=== PATIENT | male | born 1960 | race Caucasian/White ===

== ENCOUNTER 2019-12-25 15:27 | Emergency (ER) | payer BC ==
--- NOTE | 2019-12-25 17:03 | EDM.PDOC ---
ED HPI GENERAL MEDICAL PROBLEM - General Chief Complaint: Genitourinary Problem Stated Complaint: LOW BACK PAIN, Time Seen by Provider: 12/25/19 16:17 Source of Information: Reports: Patient, RN Notes Reviewed - History of Present Illness INITIAL COMMENTS - FREE TEXT/NARRATIVE: 59 yr old male comes in with sx of not voiding much at a time. He had a renal biopsy at [facility] about 10 days ago. He has only 1 kidney, had been on peritoneal dialysis with renal failure and now on hemodialysis. He is making a small amt of urine per day. He has had hematuria since the renal biopsy but that has been improving. He did void about "1/2 cup urine on arrival to ED. He is concerned that he may have a clot obstructing bladder out flow. His urine has been more clear the past 2 days and has not been passing clots today as he has several days prior. He was discharged from [facility] about 3 days ago. Left Lower Back Pain Score (Numeric/FACES): 6 - Related Data Allergies Allergy/AdvReac Type Severity Reaction Status Date / Time No Known Allergies Allergy Verified 12/25/19 16:03 Past Medical History HEENT History: Reports: Impaired Vision Cardiovascular History: Reports: High Cholesterol Respiratory History: Reports: Sleep Apnea Gastrointestinal History: Reports: Chronic Constipation Genitourinary History: Reports: Dialysis, Other (See Below) Other Genitourinary History: born with one kidney Oncologic (Cancer) History: Reports: Other (See Below) Other Oncologic History: just had kidney biopsy of tumor, unsure what results are - Past Surgical History GI Surgical History: Reports: Appendectomy, Cholecystectomy Social & Family History - Tobacco Use Smoking Status *Q: Never Smoker - Caffeine Use Caffeine Use: Reports: None ED ROS GENERAL - Review of Systems Review Of Systems: See Below Constitutional: Denies: Fever, Chills, Diaphoresis HEENT: Reports: No Symptoms Respiratory: Denies: Shortness of Breath Cardiovascular: Denies: Chest Pain GI/Abdominal: Denies: Abdominal Pain : Reports: Other (voiding small amts only at a time) Skin: Reports: No Symptoms Neurological: Reports: No Symptoms ED EXAM, RENAL/ - Physical Exam Exam: See Below General Appearance: Alert, No Apparent Distress Throat/Mouth: Normal Inspection, Normal Oropharynx Head: Atraumatic Neck: Supple Respiratory/Chest: No Respiratory Distress, Lungs Clear, Normal Breath Sounds Cardiovascular: Regular Rate, Rhythm GI/Abdominal: Non-Tender. No: Distended Back Exam: No: CVA Tenderness (L), CVA Tenderness (R) Neurological: Alert, Oriented, No Motor/Sensory Deficits Skin Exam: Warm, Dry, Normal Color Course - Vital Signs Last Recorded V/S: Last Vital Signs Temp 97.2 F 12/25/19 15:54 Pulse 98 12/25/19 15:54 Resp 20 12/25/19 15:54 BP 132/78 12/25/19 15:54 Pulse Ox 97 12/25/19 15:54 - Re-Assessments/Exams Free Text/Narrative Re-Assessment/Exam: 12/26/19 07:46 We did do a bladder scan, showed about 230 ml of urine only shortly after voiding. He states that when he did void here in the ED the urine was relatively clear with no clots or gross hematuria. I did discuss this with Dr Jim, his It Systems Administrator who does agree that he does not need or should not get a catheter at this time. Pt is comfortable with that plan. Discharge instr. as documented. Departure - Departure Time of Disposition: 16:58 Disposition: Home, Self-Care 01 Preliminary Cause of *Q: Sepsis & Multi System Organ Failure Clinical Impression: Hematuria - Discharge Information Instructions: Hematuria, Adult Referrals: Jolene Carroll, [employer]GER [Primary Care Provider] - Forms: ED Department Discharge Additional Instructions: Continue current medications, dialysis tomorrow as planned. Return to ED as needed if symptoms worsening in any way. Call Dr Jin as needed. Sepsis Event Note - Evaluation Sepsis Screening Result: No Definite Risk - Focused Exam Date Exam was Performed: 12/26/19 Time Exam was Performed: 12:05
== END 2019-12-25 17:25 | disposition home or self-care (01) ==
LOC: JD.ED 15:27
DX: R31.9 Hematuria, unspecified (principal); Z90.49 Acquired absence of other specified parts of digestive tract
CPT/HCPCS: 51798; 99282; 99283

== ENCOUNTER 2019-12-26 17:15 | Emergency (ER) | payer BC ==
--- NOTE | 2019-12-26 17:33 | EDM.PDOC ---
<Jose Patel - Last Filed: 12/27/19 03:06> ED HPI GENERAL MEDICAL PROBLEM - General Chief Complaint: General Stated Complaint: SENT FOR BLOOD TRANSFUSION Time Seen by Provider: 12/26/19 17:24 - Related Data Allergies Allergy/AdvReac Type Severity Reaction Status Date / Time No Known Allergies Allergy Verified 12/26/19 17:30 Home Meds: Home Meds Acetaminophen 1,000 mg PO Q6HR 12/26/19 [History] Albuterol [Proventil HFA] 2 puff INH QID PRN 12/26/19 [History] Bisacodyl [Laxative Suppository] 10 mg RC DAILY PRN 12/26/19 [History] Folic Acid/Vit B Complex and C [Dialyvite] 1 each PO DAILY 12/26/19 [History] Gentamicin [Gentamicin 0.1%] 15 gm TOP DAILY PRN 12/26/19 [History] HYDROmorphone [Dilaudid] 4 mg PO Q3HR PRN 12/26/19 [History] Lactulose [Chronulac] 30 ml PO TID 12/26/19 [History] Lidocaine 5% [Lidoderm 5%] 1 patch TOP DAILY 12/26/19 [History] Melatonin 3 mg PO BEDTIME 12/26/19 [History] Omeprazole 20 mg PO DAILY 12/26/19 [History] QUEtiapine [SEROquel] 200 mg PO BEDTIME 12/26/19 [History] Sennosides/Docusate Sodium [Sennosides-Docusate Sodium] 2 each PO BID 12/26/19 [ History] Sevelamer Carbonate [Renvela] 3 tab PO TID 12/26/19 [History] Venlafaxine HCl [Venlafaxine ER] 37.5 mg PO DAILY 12/26/19 [History] Warfarin Sliding Scale [Coumadin Sliding Scale] 1 each PO ASDIRECTED 12/26/19 [ History] atorvaSTATin [Lipitor] 20 mg PO DAILY 12/26/19 [History] polyethylene glycoL 3350 [MiraLAX] 17 gm PO DAILY 12/26/19 [History] Course - Vital Signs Last Recorded V/S: Last Vital Signs Temp 99.1 F 12/27/19 00:00 Pulse 87 12/27/19 00:01 Resp 16 12/27/19 00:01 BP 110/60 12/27/19 00:01 Pulse Ox 95 12/26/19 17:24 - Orders/Labs/Meds Labs: Laboratory Tests 12/26/19 12/26/19 12/26/19 Range/Units 17:35 17:35 17:35 WBC 15.76 H (4.23-9.07) K/mm3 RBC 2.59 L (4.63-6.08) M/mm3 Hgb 7.2 L* (13.7-17.5) gm/dl Hct 24.2 L (40.1-51.0) % MCV 93.4 H (79.0-92.2) fl MCH 27.8 (25.7-32.2) pg MCHC 29.8 L (32.2-35.5) g/dl RDW Std Deviation 51.2 H (35.1-43.9) fL Plt Count 356 H (163-337) K/mm3 MPV 9.3 L (9.4-12.3) fl Neut % (Auto) 81.2 H (34.0-67.9) % Lymph % (Auto) 8.0 L (21.8-53.1) % Todd % (Auto) 8.4 (5.3-12.2) % Eos % (Auto) 1.1 (0.8-7.0) Baso % (Auto) 0.3 (0.1-1.2) % Neut # (Auto) 12.81 H (1.78-5.38) K/mm3 Lymph # (Auto) 1.26 L (1.32-3.57) K/mm3 Todd # (Auto) 1.32 H (0.30-0.82) K/mm3 Eos # (Auto) 0.17 (0.04-0.54) K/mm3 Baso # (Auto) 0.04 (0.01-0.08) K/mm3 Manual Slide Review Abnormal smear Sodium 140 (136-145) mEq/L Potassium 3.9 (3.5-5.1) mEq/L Chloride 102 (98-107) mEq/L Carbon Dioxide 31 (21-32) mEq/L Anion Gap 10.9 (5-15) BUN 14 (7-18) mg/dL Creatinine 4.4 H (0.7-1.3) mg/dL Est Cr Clr Drug Dosing 19.73 mL/min Estimated GFR (MDRD) 14 (>60) mL/min BUN/Creatinine Ratio 3.2 L (14-18) Glucose 110 H (74-106) mg/dL Calcium 8.4 L (8.5-10.1) mg/dL Total Bilirubin 1.9 H (0.2-1.0) mg/dL AST 57 H (15-37) U/L ALT 29 (16-63) U/L Alkaline Phosphatase 269 H (46-116) U/L Total Protein 6.9 (6.4-8.2) g/dl Albumin 1.8 L (3.4-5.0) g/dl Globulin 5.1 gm/dL Albumin/Globulin Ratio 0.4 L (1-2) Blood Type B POSITIVE Gel Antibody Screen Negative Crossmatch See Detail Meds: Medications Discontinued Medications Generic Name Dose Route Start Last Admin Trade Name Freq PRN Reason Stop Dose Admin Sodium Chloride 500 mls @ 10 mls/hr 12/26/19 18:45 12/26/19 18:50 Normal Saline IV 12/28/19 20:44 10 mls/hr .BOLUS ONE Administration Sodium Chloride Confirm 12/26/19 18:46 12/26/19 18:51 Normal Saline Administered 12/26/19 18:47 Not Given Dose 500 mls @ as directed .ROUTE .STK-MED ONE - Re-Assessments/Exams Free Text/Narrative Re-Assessment/Exam: 12/27/19 03:06 Notified that 2 units of PRBCs has finished infusing. The patient will be discharged home. Departure - Departure Time of Disposition: 03:07 Disposition: Home, Self-Care 01 Condition: Good Clinical Impression: Anemia requiring transfusions - Discharge Information *PRESCRIPTION DRUG MONITORING PROGRAM REVIEWED*: Not Applicable *COPY OF PRESCRIPTION DRUG MONITORING REPORT IN PATIENT DERRICK: Not Applicable Instructions: Anemia, Blood Transfusion, Adult, Care After, [id number] Referrals: Daquan Cordero MD [Primary Care Provider] - Martin Ventura MD [Ordering Only Provider] - Forms: ED Department Discharge Additional Instructions: You were seen in the emergency room for severe anemia, requiring transfusion of 2 units of packed red blood cells. Resume your dialysis at your usual scheduled time. Follow-up with your Digital Composer, Dr. Martin Ventura, at your next scheduled appointment. If any other problems, please do not hesitate to return to the ER. Sepsis Event Note - Focused Exam Date Exam was Performed: 12/27/19 Time Exam was Performed: 03:06 <Brittany Jacobs - Last Filed: 12/30/19 20:10> ED HPI GENERAL MEDICAL PROBLEM - General Source of Information: Reports: Patient History Limitations: Reports: No Limitations - History of Present Illness INITIAL COMMENTS - FREE TEXT/NARRATIVE: Patient is a 59-year-old male sent to the emergency department by his petroleum refinery laborer, Dr. Ventura, for a blood transfusion. Patient has only 1 kidney and is on hemodialysis for kidney failure. He was also recently diagnosed with a tumor on his kidney and had a biopsy done at [facility]. He was discharged from that facility about 10 days ago. He had his routine lab work done at dialysis today and his hemoglobin was found to be 6.6. Blood work done 2 days prior showed a hemoglobin of 7.2. He has not been having any increased fatigue or dizziness associated with this. He denies any hematemesis or hematochezia, however states he does have blood in his urine which his petroleum refinery laborer is aware of. He has never had to have a blood transfusion in the past. He denies any history of heart failure. Past Medical History HEENT History: Reports: Impaired Vision Cardiovascular History: Reports: High Cholesterol Respiratory History: Reports: Sleep Apnea Gastrointestinal History: Reports: Chronic Constipation Genitourinary History: Reports: Dialysis, Other (See Below) Other Genitourinary History: born with one kidney Oncologic (Cancer) History: Reports: Other (See Below) Other Oncologic History: just had kidney biopsy of tumor, unsure what results are - Past Surgical History GI Surgical History: Reports: Appendectomy, Cholecystectomy Social & Family History - Caffeine Use Caffeine Use: Reports: None ED ROS GENERAL - Review of Systems Review Of Systems: Comprehensive ROS is negative, except as noted in HPI. ED EXAM, GENERAL - Physical Exam Exam: See Below Exam Limited By: No Limitations General Appearance: Alert, WD/WN, No Apparent Distress Respiratory/Chest: No Respiratory Distress, Lungs Clear, Normal Breath Sounds, No Accessory Muscle Use, Chest Non-Tender Cardiovascular: Normal Peripheral Pulses, Regular Rate, Rhythm, No Edema, No Gallop, No JVD, No Murmur, No Rub Neurological: Alert, Oriented, CN II-XII Intact, Normal Cognition, Normal Gait, Normal Reflexes, No Motor/Sensory Deficits Psychiatric: Normal Affect, Normal Mood Skin Exam: Warm, Dry, Intact, Normal Color, No Rash Course - Orders/Labs/Meds Labs: Laboratory Tests 12/26/19 12/26/19 12/26/19 Range/Units 17:35 17:35 17:35 WBC 15.76 H (4.23-9.07) K/mm3 RBC 2.59 L (4.63-6.08) M/mm3 Hgb 7.2 L* (13.7-17.5) gm/dl Hct 24.2 L (40.1-51.0) % MCV 93.4 H (79.0-92.2) fl MCH 27.8 (25.7-32.2) pg MCHC 29.8 L (32.2-35.5) g/dl RDW Std Deviation 51.2 H (35.1-43.9) fL Plt Count 356 H (163-337) K/mm3 MPV 9.3 L (9.4-12.3) fl Neut % (Auto) 81.2 H (34.0-67.9) % Lymph % (Auto) 8.0 L (21.8-53.1) % Todd % (Auto) 8.4 (5.3-12.2) % Eos % (Auto) 1.1 (0.8-7.0) Baso % (Auto) 0.3 (0.1-1.2) % Neut # (Auto) 12.81 H (1.78-5.38) K/mm3 Lymph # (Auto) 1.26 L (1.32-3.57) K/mm3 Todd # (Auto) 1.32 H (0.30-0.82) K/mm3 Eos # (Auto) 0.17 (0.04-0.54) K/mm3 Baso # (Auto) 0.04 (0.01-0.08) K/mm3 Manual Slide Review Abnormal smear Sodium 140 (136-145) mEq/L Potassium 3.9 (3.5-5.1) mEq/L Chloride 102 (98-107) mEq/L Carbon Dioxide 31 (21-32) mEq/L Anion Gap 10.9 (5-15) BUN 14 (7-18) mg/dL Creatinine 4.4 H (0.7-1.3) mg/dL Est Cr Clr Drug Dosing 19.73 mL/min Estimated GFR (MDRD) 14 (>60) mL/min BUN/Creatinine Ratio 3.2 L (14-18) Glucose 110 H (74-106) mg/dL Calcium 8.4 L (8.5-10.1) mg/dL Total Bilirubin 1.9 H (0.2-1.0) mg/dL AST 57 H (15-37) U/L ALT 29 (16-63) U/L Alkaline Phosphatase 269 H (46-116) U/L Total Protein 6.9 (6.4-8.2) g/dl Albumin 1.8 L (3.4-5.0) g/dl Globulin 5.1 gm/dL Albumin/Globulin Ratio 0.4 L (1-2) Blood Type B POSITIVE Gel Antibody Screen Negative Crossmatch See Detail Meds: Medications Discontinued Medications Generic Name Dose Route Start Last Admin Trade Name Fani PRN Reason Stop Dose Admin Sodium Chloride 500 mls @ 10 mls/hr 12/26/19 18:45 12/26/19 18:50 Normal Saline IV 12/28/19 20:44 10 mls/hr .BOLUS ONE Administration Sodium Chloride Confirm 12/26/19 18:46 12/26/19 18:51 Normal Saline Administered 12/26/19 18:47 Not Given Dose 500 mls @ as directed .ROUTE .STK-MED ONE - Re-Assessments/Exams Free Text/Narrative Re-Assessment/Exam: Hemoglobin was significant for WBC of 15.76, hemoglobin low at 7.2, creatinine elevated at 4.4, glucose 110, calcium 8.4, total bili 1.9, AST 57, alk phos 269. We will transfuse 2 units of packed RBCs. Appropriate consent has been obtained. 12/26/19 22:34 Pt is tolerating transfusions well. He is still receiving his first unit of PRBCs. Pt will likely be in the ER until tumblers supervisor. Dr. Patel will assume care of the patient at this time. Sepsis Event Note - Evaluation Sepsis Screening Result: No Definite Risk - Focused Exam Date Exam was Performed: 12/30/19 Time Exam was Performed: 20:10
[2019-12-26] MEDS: Sodium Chloride 0.9% 500 ML IV ONE ×2 (18:49→18:50)
[2019-12-26] MEDS: Sodium Chloride 0.9% 500 ML ONE ×2 (18:49→18:51)
== END 2019-12-27 03:35 | disposition home or self-care (01) ==
LOC: JD.ED 17:15
DX: D64.9 Anemia, unspecified (principal); E78.00 Pure hypercholesterolemia, unspecified; Z99.2 Dependence on renal dialysis; Z79.01 Long term (current) use of anticoagulants
CPT/HCPCS: 36415; 36430; 80053; 85025; 86850; 86900; 86901; 86922; 96360; 96361; 99284; J7030; P9016; 99283; J7040

== ENCOUNTER 2019-12-31 14:20 | Emergency (ER) | payer BC ==
--- NOTE | 2019-12-31 14:49 | EDM.PDOC ---
ED HPI GENERAL MEDICAL PROBLEM - General Chief Complaint: Genitourinary Problem Stated Complaint: FLANK PAIN/BLOOD IN URINE Time Seen by Provider: 12/31/19 14:41 Source of Information: Reports: Patient History Limitations: Reports: No Limitations - History of Present Illness INITIAL COMMENTS - FREE TEXT/NARRATIVE: TRIAGE NOTE - pt came home from [facility] approx 9 days ago. has severe L) flank pain at times, passing urine--"urges" and has to force urine and blood clots out. 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 was born with only one kidney--currently on dialysis. Currently, pain not as severe and is in bilateral groin areas. Pt is to be evaluated in ER and then is to be sent to [facility] to urologist. ABOVE --on my exam the patient tells me that he has come in because of chronic pain associated with a neoplastic process which is being evaluated and treated actively. He has been on Dilaudid and ran out a day or so ago and would like something for pain. Early on we called the patient's charger operator helper as the patient was representing that he was directed here by nephrology. At the direction of Dr. METZGER we are to determine if the patient needs to be transfused as he has had recurrent anemia requiring transfusion and also to evaluate him for possible need for emergent dialysis. The patient is noted to have a solitary kidney which is congenital. He has had some neoplastic invasion of his renal system and now is on hemodialysis 3 times a week. Otherwise there is been no fever respiratory symptoms or any other symptoms of acute medical illness otherwise. Formidable risk factors as noted. Bilateral Groin Pain Score (Numeric/FACES): 5 - Related Data Allergies Allergy/AdvReac Type Severity Reaction Status Date / Time No Known Allergies Allergy Verified 12/31/19 14:36 Home Meds: Home Meds Acetaminophen 1,000 mg PO Q6HR 12/26/19 [History] Albuterol [Proventil HFA] 2 puff INH QID PRN 12/26/19 [History] Bisacodyl [Laxative Suppository] 10 mg RC DAILY PRN 12/26/19 [History] Folic Acid/Vit B Complex and C [Dialyvite] 1 each PO DAILY 12/26/19 [History] Gentamicin [Gentamicin 0.1%] 15 gm TOP DAILY PRN 12/26/19 [History] HYDROmorphone [Dilaudid] 4 mg PO Q3HR PRN 12/26/19 [History] Lactulose [Chronulac] 30 ml PO TID 12/26/19 [History] Lidocaine 5% [Lidoderm 5%] 1 patch TOP DAILY 12/26/19 [History] Melatonin 3 mg PO BEDTIME 12/26/19 [History] Omeprazole 20 mg PO DAILY 12/26/19 [History] QUEtiapine [SEROquel] 200 mg PO BEDTIME 12/26/19 [History] Sennosides/Docusate Sodium [Sennosides-Docusate Sodium] 2 each PO BID 12/26/19 [ History] Sevelamer Carbonate [Renvela] 3 tab PO TID 12/26/19 [History] Venlafaxine HCl [Venlafaxine ER] 37.5 mg PO DAILY 12/26/19 [History] Warfarin Sliding Scale [Coumadin Sliding Scale] 1 each PO ASDIRECTED 12/26/19 [ History] atorvaSTATin [Lipitor] 20 mg PO DAILY 12/26/19 [History] polyethylene glycoL 3350 [MiraLAX] 17 gm PO BID 12/26/19 [History] HYDROmorphone [Dilaudid] 4 mg PO DAILY PRN #6 12/31/19 [Rx] Past Medical History HEENT History: Reports: Cataract, Impaired Vision Other HEENT History: wears eyeglasses. Cardiovascular History: Reports: High Cholesterol, Hypertension Respiratory History: Reports: Asthma, Sleep Apnea Other Respiratory History: cannot tolerate C-PAP. Gastrointestinal History: Reports: Chronic Constipation, GERD Genitourinary History: Reports: Dialysis, Other (See Below) Other Genitourinary History: born with one kidney Musculoskeletal History: Reports: Fracture Neurological History: Reports: None Psychiatric History: Reports: None Endocrine/Metabolic History: Reports: Obesity/BMI 30+ Hematologic History: Reports: Anemia, Anticoagulation Therapy Immunologic History: Reports: None Oncologic (Cancer) History: Reports: Renal, Other (See Below) Other Oncologic History: just had kidney biopsy of tumor, unsure of what type of cancer. Dermatologic History: Reports: None - Infectious Disease History Infectious Disease History: Reports: Chicken Pox, Mumps - Past Surgical History HEENT Surgical History: Reports: Cataract Surgery GI Surgical History: Reports: Appendectomy, Cholecystectomy, Colonoscopy Musculoskeletal Surgical History: Reports: Knee Replacement Social & Family History - Tobacco Use Smoking Status *Q: Never Smoker Second Hand Smoke Exposure: No - Caffeine Use Caffeine Use: Reports: Coffee Other Caffeine Use: hasn't drank in several months. - Recreational Drug Use Recreational Drug Use: No ED ROS GENERAL - Review of Systems Review Of Systems: Comprehensive ROS is negative, except as noted in HPI. ED EXAM, RENAL/ - Physical Exam Exam: See Below Exam Limited By: No Limitations General Appearance: Alert, WD/WN Eye Exam: Bilateral Eye: EOMI, PERRL Ears: Normal External Exam Nose: Normal Inspection Throat/Mouth: Normal Inspection Head: Atraumatic, Normocephalic Neck: Supple, Non-Tender Respiratory/Chest: No Respiratory Distress, No Accessory Muscle Use, Decreased Breath Sounds Cardiovascular: Tachycardia (MILD) GI/Abdominal: Soft, Non-Tender Back Exam: Normal Inspection Extremities: Normal Inspection, Non-Tender Neurological: Alert, Oriented, Normal Cognition Psychiatric: Normal Affect Skin Exam: Warm, Dry Course - Vital Signs Last Recorded V/S: Last Vital Signs Temp 36.7 C 12/31/19 14:25 Pulse 114 H 12/31/19 14:25 Resp 20 12/31/19 14:25 BP 122/77 12/31/19 14:25 Pulse Ox 97 12/31/19 14:25 - Orders/Labs/Meds Orders: Active Orders 24 hr Category Date Time Status Chest 1V Frontal [CR] Stat Exams 12/31/19 15:23 Taken UA RFX ALEN AND CULT IF INDIC [URIN] Stat Lab 12/31/19 14:49 Ordered Labs: Laboratory Tests 12/31/19 12/31/19 12/31/19 Range/Units 15:35 15:35 15:35 WBC 9.02 (4.23-9.07) K/mm3 RBC 2.64 L (4.63-6.08) M/mm3 Hgb 7.5 L (13.7-17.5) gm/dl Hct 24.4 L (40.1-51.0) % MCV 92.4 H (79.0-92.2) fl MCH 28.4 (25.7-32.2) pg MCHC 30.7 L (32.2-35.5) g/dl RDW Std Deviation 54.4 H (35.1-43.9) fL Plt Count 322 (163-337) K/mm3 MPV 9.1 L (9.4-12.3) fl Neutrophils % (Manual) 87 H (40-60) % Band Neutrophils % 0 (0-10) % Lymphocytes % (Manual) 5 L (20-40) % Atypical Lymphs % 0 % Monocytes % (Manual) 7 (2-10) % Eosinophils % (Manual) 0 L (0.8-7.0) % Basophils % (Manual) 1 (0.2-1.2) Platelet Estimate Adequate Hypochromasia 1+ slight Anisocytosis 1+ slight Spherocytes Few Ovalocytes 1+ slight RBC Morph Comment Not Reportable Sodium 136 (136-145) mEq/L Potassium 6.0 H D (3.5-5.1) mEq/L Chloride 99 (98-107) mEq/L Carbon Dioxide 24 (21-32) mEq/L Anion Gap 19.0 H (5-15) BUN 62 H D (7-18) mg/dL Creatinine 12.5 H D (0.7-1.3) mg/dL Est Cr Clr Drug Dosing 6.94 mL/min Estimated GFR (MDRD) 4 (>60) mL/min BUN/Creatinine Ratio 5.0 L (14-18) Glucose 103 (74-106) mg/dL Calcium 8.2 L (8.5-10.1) mg/dL Magnesium 1.5 L (1.8-2.4) mg/dl Total Bilirubin 1.3 H (0.2-1.0) mg/dL AST 43 H (15-37) U/L ALT 31 (16-63) U/L Alkaline Phosphatase 285 H (46-116) U/L Total Protein 6.7 (6.4-8.2) g/dl Albumin 1.9 L (3.4-5.0) g/dl Globulin 4.8 gm/dL Albumin/Globulin Ratio 0.4 L (1-2) Meds: Medications Discontinued Medications Generic Name Dose Route Start Last Admin Trade Name Freq PRN Reason Stop Dose Admin Furosemide 160 mg 12/31/19 16:42 Lasix IVPUSH 12/31/19 16:43 NOW ONE Lorazepam 2 mg 12/31/19 16:43 Ativan IVPUSH 12/31/19 16:44 ONETIME ONE Sodium Polystyrene Sulfonate 30 gm 12/31/19 16:43 12/31/19 17:02 Kayexalate PO 12/31/19 16:44 30 gm NOW ONE Administration - Re-Assessments/Exams Free Text/Narrative Re-Assessment/Exam: 12/31/19 17:22 As noted above the approach with the patient was to determine if he were anemic 12 point requiring transfusion and also to determine if he were a candidate for emergent dialysis. Chest x-ray does not show any process suggesting volume overload to the point dialysis required immediately. Hemoglobin 7.5. Potassium 6.0. Presented to Dr. METZGER. He recommends giving the patient Lasix and Kayexalate and discharging him to home. He is to be dialyzed tomorrow morning locally. The patient has been taking Dilaudid on a regular basis. He has run out. His symptoms may be a result of withdrawal. Ativan administered in ER. A small number of Dilaudid's have been prescribed for the patient. He was strongly cautioned not to take more than once a day. Take only in the morning. If he takes it late in the day or at night he will not get restorative sleep and this will exacerbate his pain syndrome. Precautions to return to ER, fever or any susy symptom of acute illness. Departure - Departure Time of Disposition: 17:25 Disposition: Home, Self-Care 01 Condition: Good Clinical Impression: Neoplasm related pain, End stage renal disease Anemia Qualifiers: Anemia type: unspecified type Qualified Code(s): D64.9 - Anemia, unspecified - Discharge Information Prescriptions: HYDROmorphone [Dilaudid] 4 mg PO DAILY PRN #6 PRN Reason: Pain (Severe 7-10) Referrals: PCP,Not In Area [Primary Care Provider] - Forms: ED Department Discharge Additional Instructions: As directed by your charger operator helper have dialysis locally tomorrow morning. See your specialist managing pain as scheduled for this coming Monday. Return to ER for fever or any susy symptoms of acute medical illness. Sepsis Event Note - Evaluation Sepsis Screening Result: No Definite Risk - Focused Exam Vital Signs: Vital Signs Temp Pulse Resp BP Pulse Ox 12/31/19 14:25 36.7 C 114 H 20 122/77 97 Date Exam was Performed: 12/31/19 Time Exam was Performed: 17:03 - My Orders Last 24 Hours: My Active Orders 12/31/19 14:49 UA RFX ALEN AND CULT IF INDIC [URIN] Stat 12/31/19 15:23 Chest 1V Frontal [CR] Stat - Assessment/Plan Last 24 Hours: My Active Orders 12/31/19 14:49 UA RFX ALEN AND CULT IF INDIC [URIN] Stat 12/31/19 15:23 Chest 1V Frontal [CR] Stat
[2019-12-31] MEDS ORDERED: Furosemide 100 MG/10 ML SDV IVPUSH ONE (16:42)
[2019-12-31] MEDS ORDERED: Sodium Polystyrene Sulfonate 15 GM/60 ML Susp 60 ML Bot PO ONE (16:43)
[2019-12-31] MEDS ORDERED: LORazepam 2 MG/ML SDV IVPUSH ONE (16:43)
--- NOTE | 2020-01-01 07:53 | CR ---
Chest: Portable view of the chest was obtained. Comparison: No previous chest imaging is available. Heart size and mediastinum are normal. Slight scarring/atelectasis is noted within both lung bases. Lungs otherwise are clear. Right-sided infusion catheter is seen. Bony structures are grossly intact. Impression: 1. Slight scarring/atelectasis is noted within both lung bases. 2. Right-sided infusion catheter. 3. Nothing acute is seen. No findings by chest x-ray to indicate fluid overload. Diagnostic code #2 This report was dictated in MDT
== END 2019-12-31 17:48 | disposition home or self-care (01) ==
LOC: JD.ED 14:20
DX: G89.3 Neoplasm related pain (acute) (chronic) (principal); D64.9 Anemia, unspecified; I12.0 Hypertensive chronic kidney disease with stage 5 chronic kidney disease or end stage renal disease; N18.6 End stage renal disease; E78.00 Pure hypercholesterolemia, unspecified; J45.909 Unspecified asthma, uncomplicated; Z99.2 Dependence on renal dialysis; E66.9 Obesity, unspecified; Z68.34 Body mass index [BMI] 34.0-34.9, adult; K21.9 Gastro-esophageal reflux disease without esophagitis; Z79.01 Long term (current) use of anticoagulants; Z79.899 Other long term (current) drug therapy
CPT/HCPCS: 36415; 71045; 80053; 83735; 85007; 85027; 96374; 96375; 99284; A9270; J1940; J2060

== ENCOUNTER 2020-02-08 17:58 | Emergency (ER) | payer BC ==
--- NOTE | 2020-02-08 18:35 | EDM.PDOC ---
<Jose Patel - Last Filed: 02/08/20 22:16> ED HPI GENERAL MEDICAL PROBLEM - General Chief Complaint: General Stated Complaint: SENT FROM DIALYSIS Time Seen by Provider: 02/08/20 18:31 - Related Data Allergies Allergy/AdvReac Type Severity Reaction Status Date / Time No Known Allergies Allergy Verified 02/08/20 18:22 Home Meds: Home Meds Acetaminophen 1,000 mg PO Q6HR 12/26/19 [History] Albuterol [Proventil HFA] 2 puff INH QID PRN 12/26/19 [History] Bisacodyl [Laxative Suppository] 10 mg RC DAILY PRN 12/26/19 [History] Folic Acid/Vit B Complex and C [Dialyvite] 1 each PO DAILY 12/26/19 [History] Gentamicin [Gentamicin 0.1%] 15 gm TOP DAILY PRN 12/26/19 [History] Lactulose [Chronulac] 30 ml PO TID 12/26/19 [History] Lidocaine 5% [Lidoderm 5%] 1 patch TOP DAILY 12/26/19 [History] Melatonin 3 mg PO BEDTIME 12/26/19 [History] Omeprazole 20 mg PO DAILY 12/26/19 [History] QUEtiapine [SEROquel] 200 mg PO BEDTIME 12/26/19 [History] Sennosides/Docusate Sodium [Sennosides-Docusate Sodium] 2 each PO BID 12/26/19 [ History] Sevelamer Carbonate [Renvela] 3 tab PO TID 12/26/19 [History] Venlafaxine HCl [Venlafaxine ER] 37.5 mg PO DAILY 12/26/19 [History] Warfarin Sliding Scale [Coumadin Sliding Scale] 1 each PO ASDIRECTED 12/26/19 [ History] atorvaSTATin [Lipitor] 20 mg PO DAILY 12/26/19 [History] polyethylene glycoL 3350 [MiraLAX] 17 gm PO BID 12/26/19 [History] traMADol HCl [Tramadol HCl] 50 mg PO BID PRN 01/14/20 [History] EKG INTERPRETATION EKG Date: 02/08/20 Time: 18:51 Rhythm: Other (Sinus tachycardia) Rate (Beats/Min): 114 [place]: Normal P-Wave: Enlarged (LAE) QRS: Normal ST-T: Normal QT: Normal Comparison: NA - No Prior EKG Course - Vital Signs Last Recorded V/S: Last Vital Signs Temp 97.6 F 02/08/20 22:00 Pulse 116 H 02/08/20 22:00 Resp 16 02/08/20 22:00 BP 126/86 02/08/20 22:00 Pulse Ox 96 02/08/20 22:00 - Orders/Labs/Meds Labs: Laboratory Tests 02/08/20 02/08/20 02/08/20 Range/Units 18:49 19:00 19:00 WBC 13.01 H (4.23-9.07) K/mm3 RBC 3.40 L (4.63-6.08) M/mm3 Hgb 10.0 L D (13.7-17.5) gm/dl Hct 31.8 L (40.1-51.0) % MCV 93.5 H (79.0-92.2) fl MCH 29.4 (25.7-32.2) pg MCHC 31.4 L (32.2-35.5) g/dl RDW Std Deviation 54.7 H (35.1-43.9) fL Plt Count 190 D (163-337) K/mm3 MPV 9.3 L (9.4-12.3) fl Neutrophils % (Manual) 88 H (40-60) % Band Neutrophils % 0 (0-10) % Lymphocytes % (Manual) 8 L (20-40) % Atypical Lymphs % 1 % Monocytes % (Manual) 3 (2-10) % Eosinophils % (Manual) 0 L (0.8-7.0) % Basophils % (Manual) 0 L (0.2-1.2) Platelet Estimate Adequate Polychromasia Few Poikilocytosis 1+ slight Anisocytosis 1+ slight Macrocytosis 1+ slight Ovalocytes 1+ slight RBC Morph Comment Not Reportable PT (9.7-12.0) SECONDS INR Sodium 136 (136-145) mEq/L Potassium 4.7 (3.5-5.1) mEq/L Chloride 99 (98-107) mEq/L Carbon Dioxide 26 (21-32) mEq/L Anion Gap 15.7 H (5-15) BUN 41 H (7-18) mg/dL Creatinine 6.3 H D (0.7-1.3) mg/dL Est Cr Clr Drug Dosing TNP Estimated GFR (MDRD) 9 (>60) mL/min BUN/Creatinine Ratio 6.5 L (14-18) Glucose 97 (74-106) mg/dL POC Glucose 85 (70-105) mg/dL Lactic Acid (0.4-2.0) mmol/L Calcium 8.6 (8.5-10.1) mg/dL Total Bilirubin 2.1 H (0.2-1.0) mg/dL AST 995 H (15-37) U/L ALT 841 H (16-63) U/L Alkaline Phosphatase 150 H (46-116) U/L Ammonia (11-32) umol/L C-Reactive Protein <0.2 (<1.0) mg/dL Total Protein 8.1 (6.4-8.2) g/dl Albumin 3.0 L (3.4-5.0) g/dl Globulin 5.1 gm/dL Albumin/Globulin Ratio 0.6 L (1-2) 02/08/20 02/08/20 02/08/20 Range/Units 19:00 19:00 19:00 WBC (4.23-9.07) K/mm3 RBC (4.63-6.08) M/mm3 Hgb (13.7-17.5) gm/dl Hct (40.1-51.0) % MCV (79.0-92.2) fl MCH (25.7-32.2) pg MCHC (32.2-35.5) g/dl RDW Std Deviation (35.1-43.9) fL Plt Count (163-337) K/mm3 MPV (9.4-12.3) fl Neutrophils % (Manual) (40-60) % Band Neutrophils % (0-10) % Lymphocytes % (Manual) (20-40) % Atypical Lymphs % % Monocytes % (Manual) (2-10) % Eosinophils % (Manual) (0.8-7.0) % Basophils % (Manual) (0.2-1.2) Platelet Estimate Polychromasia Poikilocytosis Anisocytosis Macrocytosis Ovalocytes RBC Morph Comment PT 90.0 H* (9.7-12.0) SECONDS INR 8.00 H* Sodium (136-145) mEq/L Potassium (3.5-5.1) mEq/L Chloride (98-107) mEq/L Carbon Dioxide (21-32) mEq/L Anion Gap (5-15) BUN (7-18) mg/dL Creatinine (0.7-1.3) mg/dL Est Cr Clr Drug Dosing Estimated GFR (MDRD) (>60) mL/min BUN/Creatinine Ratio (14-18) Glucose (74-106) mg/dL POC Glucose (70-105) mg/dL Lactic Acid 2.6 H* (0.4-2.0) mmol/L Calcium (8.5-10.1) mg/dL Total Bilirubin (0.2-1.0) mg/dL AST (15-37) U/L ALT (16-63) U/L Alkaline Phosphatase (46-116) U/L Ammonia 35 H (11-32) umol/L C-Reactive Protein (<1.0) mg/dL Total Protein (6.4-8.2) g/dl Albumin (3.4-5.0) g/dl Globulin gm/dL Albumin/Globulin Ratio (1-2) - Re-Assessments/Exams Free Text/Narrative Re-Assessment/Exam: 02/08/20 20:[address] Godfrey. I have reviewed his chart and examined the patient. He is awake, but does not provide any information. He is in no apparent distress. On examination, the patient is diaphoretic. He is mildly tachycardic. No abnormal heart, lung, or abdominal sounds. No tenderness to his abdomen. No edema to the lower extremities. A tunneled HD catheter is in place in the right chest, and a PD catheter is in place in the mid-abdomen. Portable chest radiograph reviewed. Poor inspiratory effort. The cardiac silhouette is within normal limits. No pulmonary vascular congestion. No pleural effusions seen on this AP view. No focal infiltrate. No pneumothorax. A right-sided hemodialysis catheter is present. Formal read per the Radiologist pending. 02/08/20 20:26 CT of the head without contrast is read by Dr. Peralta as: 1. Nothing acute is appreciated on noncontrast head CT exam. The patient CBC is remarkable for a WBC count elevated at 13.01, but with 0% bandemia. His H/H are mildly depressed at 10.0/31.8, with the remainder of his CBC being unremarkable. His CMP is remarkable for an anion gap slightly elevated at 15.7, but with a bicarbonate normal at 26. His BUN/Cr are elevated at 41/6.3. His TBil is elevated at 2.1. His AST/ALT are elevated at 995/841, respectively. His alkaline phosphatase is elevated at 150, with the remainder of his CMP being unremarkable. His ammonia level is slightly elevated at 35. His CRP is undetectably low. His lactic acid level is mildly elevated at 2.6. His PT is elevated at 90, with an INR of 8.0. I agree with Dr. Godfrey that the patient should be admitted to the hospital, however, because he is on dialysis, he cannot be admitted to this facility. He will need to be transferred to [place]. 02/08/20 20:40 I have pushed the portable chest x-ray and CT/head images to [facility]. 02/08/20 20:57 Case discussed with Garry at [facility] at 20:41. Case then discussed with Dr. Diaz, Hospitalist at [facility], at 20: 49. He accepted the patient for transfer to their facility, however, he asked that I determine the patient's CODE STATUS, and to document that. 02/08/20 21:03 Case discussed with the patient's daughter, Naty Mcclain, who is his power of divorce attorney, at 21:00. She was in agreement with the patient being transferred to [facility]. With respect to the patient's CODE STATUS, she stated that the patient has expressed a desire to be DNR on numerous occasion, however , his CODE STATUS did need to be reversed for procedures performed at [facility]. Since then, she believes that his CODE STATUS has remained full code, however, she wanted to discuss the patient's CODE STATUS with a relative, and asked that I call her back in about 15 minutes. 02/08/20 21:21 I spoke again to the patient's daughter, Naty Mcclain, at 21:20. She would like the patient to be full code. Departure - Departure Time of Disposition: 20:55 Disposition: DC/Tfer to Acute Hospital 02 Condition: Fair Clinical Impression: Confusion, Supratherapeutic INR, Elevated LFTs - Discharge Information *PRESCRIPTION DRUG MONITORING PROGRAM REVIEWED*: Not Applicable *COPY OF PRESCRIPTION DRUG MONITORING REPORT IN PATIENT DERRICK: Not Applicable Referrals: Martin Ventura MD [Primary Care Provider] - Carlos Zamora MD [Ordering Only Provider] - Daquan Cordero MD [Ordering Only Provider] - Forms: ED Department Discharge Sepsis Event Note - Focused Exam Date Exam was Performed: 02/08/20 Time Exam was Performed: 22:16 <Shin Godfrey - Last Filed: 02/10/20 13:12> ED HPI GENERAL MEDICAL PROBLEM - General Source of Information: Reports: EMS, Family (daughter), RN Notes Reviewed - History of Present Illness INITIAL COMMENTS - FREE TEXT/NARRATIVE: 59 yr old male brought over after his dialysis run today for evaluation of generalized weakness and confusion. Not able to obtain any hx from patient due to patient's altered mental status. I have obtained information from his daughter in waiting room who lives in [place]. The patient has been living in [place] with her daughter and is reported to have started becoming ill and confused about 4 to 5 days ago. 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 He has been receiving chemo, his daughter states a new agent was given 11 days ago and he "has been more ill since that time. He has been on hemodialysis but is reported to have refused to come for dialysis 4 days ago and 2 days ago. Somehow he did arrive for dialysis today but "not his usual self" according to diaysis nurses. He was weak, dizzy, confused even on arrival to dialysis but sx are reported to have worsened during his dialysis session. There is no report of vomiting but daughter doesn't think he has been eating or drinking the last 2 or 3 days. Is also known to be anemic. Refused a blood transfusion also in the last few days as well. Past Medical History HEENT History: Reports: Cataract, Impaired Vision Other HEENT History: wears eyeglasses. Cardiovascular History: Reports: High Cholesterol, Hypertension Respiratory History: Reports: Asthma, Sleep Apnea Other Respiratory History: cannot tolerate C-PAP. Gastrointestinal History: Reports: Chronic Constipation, GERD Genitourinary History: Reports: Dialysis, Other (See Below) Other Genitourinary History: born with one kidney Musculoskeletal History: Reports: Fracture Neurological History: Reports: None Psychiatric History: Reports: None Endocrine/Metabolic History: Reports: Obesity/BMI 30+ Hematologic History: Reports: Anemia, Anticoagulation Therapy Immunologic History: Reports: None Oncologic (Cancer) History: Reports: Renal, Other (See Below) Other Oncologic History: just had kidney biopsy of tumor, unsure of what type of cancer. Dermatologic History: Reports: None - Infectious Disease History Infectious Disease History: Reports: Chicken Pox, Mumps - Past Surgical History HEENT Surgical History: Reports: Cataract Surgery GI Surgical History: Reports: Appendectomy, Cholecystectomy, Colonoscopy Musculoskeletal Surgical History: Reports: Knee Replacement Social & Family History - Caffeine Use Caffeine Use: Reports: Coffee Other Caffeine Use: hasn't drank in several months. ED ROS GENERAL - Review of Systems Review Of Systems: Unable To Obtain Reason Not Obtained: altered mental status, very confused ED EXAM, GENERAL - Physical Exam Exam: See Below General Appearance: Other (awake but very confused) Eye Exam: Bilateral Eye: PERRL Head: Atraumatic. No: Facial Swelling Neck: Supple Respiratory/Chest: No Respiratory Distress, Lungs Clear, Normal Breath Sounds. No: Rhonchi, Wheezing Cardiovascular: Tachycardia GI/Abdominal: Non-Tender Back Exam: No: CVA Tenderness (L), CVA Tenderness (R) Extremities: No: Pedal Edema, Leg Pain, Increased Warmth, Redness Neurological: Disoriented, Slow to Respond, Other (able to tell me his name, not able to answer any other questions at time of exam) Skin Exam: Warm, Dry, Normal Color Course - Orders/Labs/Meds Labs: Laboratory Tests 02/08/20 02/08/20 02/08/20 Range/Units 18:49 19:00 19:00 WBC 13.01 H (4.23-9.07) K/mm3 RBC 3.40 L (4.63-6.08) M/mm3 Hgb 10.0 L D (13.7-17.5) gm/dl Hct 31.8 L (40.1-51.0) % MCV 93.5 H (79.0-92.2) fl MCH 29.4 (25.7-32.2) pg MCHC 31.4 L (32.2-35.5) g/dl RDW Std Deviation 54.7 H (35.1-43.9) fL Plt Count 190 D (163-337) K/mm3 MPV 9.3 L (9.4-12.3) fl Neutrophils % (Manual) 88 H (40-60) % Band Neutrophils % 0 (0-10) % Lymphocytes % (Manual) 8 L (20-40) % Atypical Lymphs % 1 % Monocytes % (Manual) 3 (2-10) % Eosinophils % (Manual) 0 L (0.8-7.0) % Basophils % (Manual) 0 L (0.2-1.2) Platelet Estimate Adequate Polychromasia Few Poikilocytosis 1+ slight Anisocytosis 1+ slight Macrocytosis 1+ slight Ovalocytes 1+ slight RBC Morph Comment Not Reportable PT (9.7-12.0) SECONDS INR Sodium 136 (136-145) mEq/L Potassium 4.7 (3.5-5.1) mEq/L Chloride 99 (98-107) mEq/L Carbon Dioxide 26 (21-32) mEq/L Anion Gap 15.7 H (5-15) BUN 41 H (7-18) mg/dL Creatinine 6.3 H D (0.7-1.3) mg/dL Est Cr Clr Drug Dosing TNP Estimated GFR (MDRD) 9 (>60) mL/min BUN/Creatinine Ratio 6.5 L (14-18) Glucose 97 (74-106) mg/dL POC Glucose 85 (70-105) mg/dL Lactic Acid (0.4-2.0) mmol/L Calcium 8.6 (8.5-10.1) mg/dL Total Bilirubin 2.1 H (0.2-1.0) mg/dL AST 995 H (15-37) U/L ALT 841 H (16-63) U/L Alkaline Phosphatase 150 H (46-116) U/L Ammonia (11-32) umol/L C-Reactive Protein <0.2 (<1.0) mg/dL Total Protein 8.1 (6.4-8.2) g/dl Albumin 3.0 L (3.4-5.0) g/dl Globulin 5.1 gm/dL Albumin/Globulin Ratio 0.6 L (1-2) 02/08/20 02/08/20 02/08/20 Range/Units 19:00 19:00 19:00 WBC (4.23-9.07) K/mm3 RBC (4.63-6.08) M/mm3 Hgb (13.7-17.5) gm/dl Hct (40.1-51.0) % MCV (79.0-92.2) fl MCH (25.7-32.2) pg MCHC (32.2-35.5) g/dl RDW Std Deviation (35.1-43.9) fL Plt Count (163-337) K/mm3 MPV (9.4-12.3) fl Neutrophils % (Manual) (40-60) % Band Neutrophils % (0-10) % Lymphocytes % (Manual) (20-40) % Atypical Lymphs % % Monocytes % (Manual) (2-10) % Eosinophils % (Manual) (0.8-7.0) % Basophils % (Manual) (0.2-1.2) Platelet Estimate Polychromasia Poikilocytosis Anisocytosis Macrocytosis Ovalocytes RBC Morph Comment PT 90.0 H* (9.7-12.0) SECONDS INR 8.00 H* Sodium (136-145) mEq/L Potassium (3.5-5.1) mEq/L Chloride (98-107) mEq/L Carbon Dioxide (21-32) mEq/L Anion Gap (5-15) BUN (7-18) mg/dL Creatinine (0.7-1.3) mg/dL Est Cr Clr Drug Dosing Estimated GFR (MDRD) (>60) mL/min BUN/Creatinine Ratio (14-18) Glucose (74-106) mg/dL POC Glucose (70-105) mg/dL Lactic Acid 2.6 H* (0.4-2.0) mmol/L Calcium (8.5-10.1) mg/dL Total Bilirubin (0.2-1.0) mg/dL AST (15-37) U/L ALT (16-63) U/L Alkaline Phosphatase (46-116) U/L Ammonia 35 H (11-32) umol/L C-Reactive Protein (<1.0) mg/dL Total Protein (6.4-8.2) g/dl Albumin (3.4-5.0) g/dl Globulin gm/dL Albumin/Globulin Ratio (1-2) - Re-Assessments/Exams Free Text/Narrative Re-Assessment/Exam: 02/08/20 19:22. change of shift. Initial labs and head Ct ordered. Will transfer care to Dr Patel at this time. Sepsis Event Note - Evaluation Sepsis Screening Result: No Definite Risk - Focused Exam Date Exam was Performed: 02/10/20 Time Exam was Performed: 13:12
--- NOTE | 2020-02-08 19:35 | CT ---
Head CT Technique: Multiple axial sections through the brain were obtained. Intravenous contrast was not utilized. Comparison: No prior intracranial imaging is available. Findings: Ventricles along with basal cisterns and sulci over the convexities are within normal limits for the patient's age. No abnormal parenchymal densities are seen. No evidence of intracranial hemorrhage. No midline shift or mass-effect is seen. Bone window settings were reviewed. No acute calvarial finding is appreciated. Visualized mastoid sinuses and visualized paranasal sinuses show nothing acute. Impression: 1. Nothing acute is appreciated on noncontrast head CT exam. Diagnostic code #1 This report was dictated in MDT
--- NOTE | 2020-02-09 10:27 | CR ---
Chest: Portable view of the chest was obtained. Comparison: Prior chest x-ray of 12/31/19. Heart size and mediastinum are within normal limits for portable technique. Right-sided dialysis catheter is seen. Lungs are clear with no acute parenchymal change. Impression: 1. Slight cardiomegaly. 2. Right-sided dialysis catheter. Diagnostic code #2 This report was dictated in MDT
== END 2020-02-08 22:00 ==
LOC: JD.ED 17:58
DX: R41.0 Disorientation, unspecified (principal); R79.1 Abnormal coagulation profile; R79.89 Other specified abnormal findings of blood chemistry; I10 Essential (primary) hypertension; K21.9 Gastro-esophageal reflux disease without esophagitis; E78.00 Pure hypercholesterolemia, unspecified; E66.9 Obesity, unspecified; Z79.899 Other long term (current) drug therapy; Z79.01 Long term (current) use of anticoagulants
CPT/HCPCS: 36415; 70450; 70450-26; 71045; 71045-26; 80053; 82140; 82962; 83605; 85007; 85027; 85610; 86140; 87040; 93005; 93010; 99285; 99285-25